=== PATIENT | female | born 1975 | race Caucasian/White ===

== ENCOUNTER 2018-09-05 20:36 | Emergency (ER) | payer MEDICAID, OTHER ==
[~2018-09-05] VITALS: Wt 63.5 kg
[2018-09-05] MEDS ORDERED: IBUPROFEN 800 MG TAB PO ONE (21:30)
[2018-09-05] MEDS ORDERED: IBUP-1542 PO (22:49)
--- NOTE | 2018-09-05 22:51 | ERD ---
ER Documentation Chief Complaint Chief Complaint chest pain/sob x 3 weeks. states been under a lot of stress HPI Patient is a 43-year-old female with hypertension who presents with chest pain. Her symptoms started 3 weeks ago. They have been constant all day today and she describes them as "intense". She has shortness of breath as well. She tried Tylenol and Advil. She feels anxious. Upon review of old medical records this is the patient's a visit to the ER since 2006. She does not currently have a primary doctor. ROS All systems reviewed and are negative except as per history of present illness. Medications Home Meds Active Scripts Ibuprofen* (Motrin*) 600 Mg Tab, 600 MG PO Q6H PRN for PAIN AND OR ELEVATED TEMP, #30 TAB Prov:LEANDER GARNER MD 09/05/18 Allergies Allergies: Coded Allergies: No Known Allergy (Unverified , 09/05/18) PMhx/Soc Medical and Surgical Hx: pt denies Medical Hx, pt denies Surgical Hx History of Surgery: No Anesthesia Reaction: No Hx Neurological Disorder: No Hx Respiratory Disorders: No Hx Cardiac Disorders: No Hx Psychiatric Problems: No Hx Miscellaneous Medical Probl: No Hx Alcohol Use: No Hx Substance Use: No Hx Tobacco Use: No Smoking Status: Never smoker FmHx Family History: No coronary disease Physical Exam Vitals Vital Signs Date Temp Pulse Resp B/P (MAP) Pulse Ox O2 O2 Flow FiO2 Time Delivery Rate 09/05/18 66 21 131/81 100 Room Air 22:55 (98) 09/05/18 98.0 78 18 135/77 99 20:50 (96) Physical Exam Const: No acute distress Head: Atraumatic Eyes: Normal Conjunctiva ENT: Normal External Ears, Nose and Mouth. Neck: Full range of motion. No meningismus. Resp: Clear to auscultation bilaterally Cardio: Regular rate and rhythm, no murmurs, chest wall tenderness to palpation without rebound or guarding Abd: Soft, non tender, non distended. Normal bowel sounds Skin: No petechiae or rashes Back: No midline or flank tenderness Ext: No cyanosis, or edema Neur: Awake and alert Psych: Normal Mood and Affect Results 24 hrs Laboratory Tests Test 09/05/18 21:36 POC Beta HCG, Qualitative NEGATIVE Current Medications Medications Dose Sig/Tucker Start Time Status Last (Trade) Ordered Route PRN Stop Time Admin Dose Reason Admin Ibuprofen 800 mg ONCE ONCE 09/05/18 DC 09/05/18 (Motrin) PO 21:30 09/05/18 21:17 21:31 Procedures/MDM EKG read by me: Rate/Rhythm: Regular rate and rhythm at a rate of 90 Intervals: Normal Impression: No evidence of ischemia or arrhythmia Chest x-ray negative per radiology. Patient is a 43-year-old female with hypertension who presents with chest pain. Her EKG and chest x-ray are negative. At this point I doubt acute coronary syndrome, pneumonia, pneumothorax, pulmonary embolism, or aortic dissection. The patient will be discharged but will need to follow-up closely with the local clinics within 24 to 48 hours that she does not currently have a primary doctor. Patient can return for any worsening symptoms. Departure Diagnosis: Primary Impression: Chest pain Chest pain type: unspecified Qualified Codes: R07.9 - Chest pain, unspecified Condition: Fair Patient Instructions: Chest Pain, Uncertain Cause [facility] Usted se finn hecho un examen mdico de control que le indica que no est en dottie condicin que requiera tratamiento urgente en el Departamento de Emergencia. Un estudio ms profundo y el tratamiento de priest condicin pueden esperar sin ningn riesgo hasta que usted sea atendida/o en el consultorio de priest mdico o dottie clnica. Es responsabilidad suya arreglar dottie delphine para el seguimiento del maria de jesus. MANEJO DE CONDICIONES NO URGENTES EN EL FUTURO 1) Si usted tiene un mdico de atencin primaria: Usted debera llamar a priest mdico de atencin primaria antes de venir al departamento de emergencia. Despus de las horas de consultorio, priest doctor o priest asociado/a est disponible por telfono. El mdico o enfermero de leopoldo en el servicio telefnico puede asesorarle por paul medio para atender el problema, o maria de jesus contrario se puede programar dottie delphine. 2) Si usted no tiene un mdico de atencin primaria: Llame al mdico o clnica de referencia que aparece abajo serenity las horas de consultorio para hacer dottie delphine para que le vean. CLINICAS: [place] [id number] [phone] [facility] [phone] [facility] [phone] [place] [phone] [place] [address] [phone] [facility] [phone] [address] Additional Instructions: Llame al doctor MAANA y hugh dottie DELPHINE PARA DENTRO DE 1-2 SOW.Dgale a la secretaria que nosotros le instruimos hacer esta delphine.Avise o llame si priest condicin se empeora antes de la delphine. Regresa aqui si peor o no mejor. LEANDER GARNER MD Sep 05, 2018 22:51
[2018-09-05 22:55] VITALS: BP 131/81; PULSE 66; RESP 21
== END 2018-09-05 23:00 | disposition home or self-care (01) ==
LOC: E/R 20:36
DX: I10 Essential (primary) hypertension (principal)
CPT/HCPCS: 71045; 81025; 93005; Z7502; Z7610

== ENCOUNTER 2018-10-04 17:04 | Emergency (ER) | payer MEDICAID ==
[~2018-10-04] VITALS: Ht 160 cm; Wt 61.8 kg
[~2018-10-04 17:04] MED LIST: IBUP-1542 PO
[2018-10-04 17:07] VITALS: Ht 160 cm; Wt 61.8 kg
--- NOTE | 2018-10-04 17:39 | ERD ---
ER Documentation Chief Complaint Chief Complaint intermittent chest pain radiating to back x 2 months HPI 43-year-old woman has continued complaints of chest pain and right upper back muscle spasm on a daily basis, she is also been very anxious and tearful lately as well. Her daughter who is at the bedside states that her mom is extremely anxious on a daily basis and constantly has upper back and chest pain. She was seen and evaluated here a few weeks ago and ER work-up was unremarkable. She denies loss of consciousness, no shortness of breath, no cough, no calf or leg swelling, no suicidal homicidal ideation. She has not seen her primary care physician and uses ibuprofen intermittently without relief. She has been seen and evaluated for the symptoms in the past. ROS All systems reviewed and are negative except as per history of present illness. 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 History of Surgery: No Anesthesia Reaction: No Hx Neurological Disorder: No Hx Respiratory Disorders: No Hx Cardiac Disorders: No Hx Psychiatric Problems: No Hx Miscellaneous Medical Probl: No Hx Alcohol Use: No Hx Substance Use: No Hx Tobacco Use: No FmHx Family History: No diabetes Physical Exam Vitals Vital Signs Date Temp Pulse Resp B/P (MAP) Pulse Ox O2 O2 Flow FiO2 Time Delivery Rate 10/04/18 98.1 65 18 130/81 98 Room Air 18:33 (97) 10/04/18 98.1 85 18 138/88 98 17:07 (105) Physical Exam GENERAL: Well-developed, well-nourished, well-hydrated, appears anxious, afebrile NEURO: Alert and oriented 3, cranial nerves II through XII intact bilaterally, pupils equal round reactive to light, no focal deficits or facial asymmetry, sensation intact distally Strength 5/5 in upper and lower extremities bilaterally CARDIAC: Regular rate and rhythm, no murmurs rubs or gallops LUNGS: Clear bilaterally no wheezing crackles or stridor EXTREMITIES: No clubbing cyanosis or edema, calves are bilaterally symmetrical, no Homans sign, no popliteal cord sign. Distal pulses equal and bilateral PSYCH: Anxious and tearful Results 24 hrs Current Medications Medications Dose Sig/Tucker Start Time Status Last (Trade) Ordered Route PRN Stop Time Admin Dose Reason Admin Ketorolac 30 mg ONCE STAT 10/04/18 DC 10/04/18 Tromethamine IM 17:46 10/04/18 17:57 (Toradol) 17:47 Lorazepam 0.5 mg ONCE ONCE 10/04/18 DC 10/04/18 (Ativan) PO 18:00 10/04/18 17:57 18:01 Procedures/MDM EKG performed, read by me: 84 bpm, normal sinus rhythm, normal axis, no acute ST segment changes, narrow QRS complex, with good R-wave progression in precordial leads. I administered lorazepam 0.5 mg p.o. x1 and Toradol 30 mg IM x1 I reviewed past medical records and imaging studies. Differential diagnoses considered, included but not limited to acute coronary syndrome, pulmonary embolism, aortic dissection, abdominal aortic aneurysm, sepsis, stroke, meningitis, encephalitis, pneumonia, appendicitis, cholecystitis, bowel obstruction, pyelonephritis, nephrolithiasis, cystitis, as well as metabolic, hematologic, and electrolyte abnormalities. As well as abscess, cellulitis, fractures, and dislocations. Patient feels much better at this time, and vital signs are normal, symptoms have improved. I did give strict instructions to return to the ED if symptoms continue or worsen, patient will otherwise follow-up with primary care physician. Patient understood instructions and agreed to plan. Disclaimer: Inadvertent spelling and grammatical errors are likely due to EHR/dictation software use and do not reflect on the overall quality of patient care. Also, please note that the electronic time recorded on this note does not necessarily reflect the actual time of the patient encounter. Departure Diagnosis: Primary Impression: Chest pain Chest pain type: unspecified Qualified Codes: R07.9 - Chest pain, unspecified Additional Impression: Acute anxiety Condition: JULIANNA Pemberton MD Oct 04, 2018 17:39
[2018-10-04] MEDS ORDERED: KETOROLAC 30 MG INJ IM STA (17:46)
[2018-10-04] MEDS ORDERED: LORA-441 PO (17:47)
[2018-10-04] MEDS ORDERED: LORAZEPAM 0.5 MG TAB PO ONE (18:00)
[2018-10-04 18:33] VITALS: BP 130/81; PULSE 65; RESP 18
== END 2018-10-04 18:34 | disposition home or self-care (01) ==
LOC: E/R 17:04
DX: R07.89 Other chest pain (principal); F41.9 Anxiety disorder, unspecified
CPT/HCPCS: J1885; Z7610; 93005; 96372